=== PATIENT | male | born 1965 | race Caucasian/White ===

== ENCOUNTER 2023-08-19 14:38 | Emergency (ER) | payer OTHER, BC, SELFPAY ==
--- NOTE | 2023-08-19 14:53 | CT_ITS ---
Patient: JOSEPH CABAN Facility:?[facility] RIS Patient ID:?[id number] Site Patient ID:?[id number]. Site :?[id number] Study:?CT-Abdomen/Pelvis WITHOUT-08/19/2023 3:14:22 PM Ordering Physician:CLEMENT Final Report: INDICATION: Left flank pain. COMPARISON: None available. TECHNIQUE: CT of the abdomen and pelvis without intravenous contrast. Please note that all CT scans at this facility use dose modulation, iterative reconstruction, and/or weight-based dosing when appropriate to reduce radiation dose to as low as reasonably achievable. FINDINGS: The study is performed without intravenous contrast. This limits the sensitivity of the exam for the detection bowel pathology, focal lesions of the abdominopelvic viscera and vascular pathology including significant vascular stenosis, occlusion and dissection. ABDOMEN Liver: Normal hepatic attenuation. No suspicious focal hepatic lesion. No intrahepatic biliary ductal dilatation. Gallbladder: Normal gallbladder size. Normal common duct caliber. No pericholecystic inflammatory changes. Pancreas: Normal pancreatic attenuation. No focal lesion. Normal duct caliber. No peripancreatic inflammatory changes. Spleen: Normal splenic attenuation. No suspicious focal lesion. Adrenal Glands: Symmetrical adrenal glands. No focal lesion of significance. Kidneys: Normal bilateral renal attenuation. Parapelvic cysts are noted in the left lower pole renal sinus. No suspicious focal lesion. No obstructing nephrolith or dilatation of the upper urinary tracts. Gastrointestinal tract: Normal caliber, attenuation and wall thickness of the gastrointestinal tract. Scattered diverticulosis without associated inflammatory changes. Normal mesentery. Normal appendix. Vascular: Normal outer wall to outer wall abdominal aortic caliber. Patency and luminal caliber of the abdominopelvic arterial and venous vasculature cannot be assessed on this noncontrast study. Additional findings: No incidental adenopathy. No significant ascites, free fluid or pneumoperitoneum. PELVIS No bladder lesion is identified. Multiple bilateral subcentimeter hyperattenuating non anatomical objects consistent with fiducial marker is are noted at the periphery of the prostate. Please correlate with the patient`s surgical history. No abnormal free fluid. No incidental adenopathy. SKELETON AND BODY WALL No acute or suspicious incidental findings. Apparent prior umbilical hernia mesh repair. Please correlate with the patient`s surgical history. 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 Partially included lower thoracic wall, lungs, pleural spaces and mediastinum are otherwise without significant incidental findings. IMPRESSION: No imaging findings to explain the history of left flank/abdominal pain. Incidental findings described above. The study is performed without intravenous contrast. This limits the sensitivity of the exam for the detection bowel pathology, focal lesions of the abdominopelvic viscera and vascular pathology including significant vascular stenosis, occlusion and dissection. Please note that all CT scans at this facility use dose modulation, iterative reconstruction, and/or weight-based dosing when appropriate to reduce radiation dose to as low as reasonably achievable. Dictated by Aleksandar Molina MD @ 08/19/2023 3:32:04 PM Signed by:?Aleksandar Molina MD @08/19/2023 3:32:04 PM (Electronic Signature)
--- NOTE | 2023-08-19 14:54 | ED_ITS ---
HPI - General Adult General Date Seen: 08/19/23 Chief complaint: Flank Pain Stated complaint: Kidney stones Time Seen by Provider: 08/19/23 14:48 History of Present Illness HPI narrative: This is a very pleasant 58-year-old male presenting to the ER today for left flank pain. His pain began over a week ago last Thursday or Thursday. 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 However he notes that his pain and to be worse when he lays down in bed and worse when he tries to sit and it is actually better when he is up moving around. The pain is located in the left flank. It does not radiate up into his ribs or down into his hip or down his leg. No associated numbness or weakness in the leg. Urination and bowel habits have been normal. No fever. No shortness of breath. No coughing. No known fall or injury. The pain does not radiate around to the front of the abdomen. He went to the ER in [place] the other day to have the pain evaluated. Apparently after seeing the ER doctor they decided clinically that he probably had a kidney stone. They decided not to do workup with CT imaging and rather wait for spontaneous passage.\ He has had ongoing pain all week so came to the ER today desiring workup for kidney stone. He has no previous history of kidney stones. Otherwise healthy. However, he does not go to the doctor and does not currently have primary care. Related Data Previous Rx's ?Medication ?Instructions ?Recorded cyclobenzaprine 10 mg tablet 10 mg PO TID PRN muscle spasm #10 08/19/23 tabs hydrocodone 5 mg-acetaminophen 325 1 tab PO Q4-6H PRN pain #10 tabs 08/19/23 mg tablet Allergies Allergy/AdvReac Type Severity Reaction Status Date / Time No Known Drug Allergies Allergy Verified 08/19/23 14:59 PFSH PFSH Social History Smoking Status: Never smoker Do you use any of these nicotine containing products: None Second hand tobacco smoke exposure: No How often do you have a drink containing alcohol: never AUDIT-C Alcohol total score: 0 Non-prescribed substance use: denies use service: No Exam Narrative: Exam Narrative: Constitutional: Appears well-developed and well-nourished. Alert. Conversant. Non toxic. HENT: Head: Atraumatic. Nose: Nose normal. Mouth/Throat: Oral mucosa is clear and moist. no trismus. Eyes: Conjunctivae normal. EOM normal. Pupils equal, round, and reactive to light. No scleral icterus. Neck: Normal range of motion. Neck supple. No tracheal deviation present. Cardiovascular: Normal rate, regular rhythm. No gallop. No friction rub. No murmur heard. Symmetric radial artery pulses Pulmonary/Chest: Effort normal. No stridor. No respiratory distress. No wheezes. No rales. No rhonchi . No tenderness. Abdominal: Soft. Bowel sounds normal. No distension. No mass. No tenderness. No rebound. No guarding. Musculoskeletal: RUE: Normal range of motion. No tenderness. No deformity LUE: Normal range of motion. No tenderness. No deformity RLE: Normal range of motion. No edema. No tenderness. No deformity LLE: Normal range of motion. No edema. No tenderness. No deformity Left CVA tenderness. No midline thoracic or lumbar spine tenderness. Pelvis stable. Neurological: Alert and oriented to person, place, and time. Normal strength. CN II-VII intact. No sensory deficit. GCS eye subscore is 4. GCS verbal subscore is 5. GCS motor subscore is 6. Normal coordination Sensory: Normal light touch sensation bilaterally on the anteromedial thigh (L3), medial malleolus (L4), dorsal first web space (L5), lateral malleolus (S1). Strength: 5/5 strength hip flexors (L3) on the rig ht and left 5/5 strength in the quadriceps (L4) on t he right and left 5/5 strength in the tibialis anterior 5/5 strength in the EHL (L5) on the righ t and left 5/5 strength in the gastrocnemius (S1) o n the right and left 5/5 strength in the hamstring on the rig ht and left Negative straight leg raise bilaterally. Skin: Skin is warm and dry. No rash noted. No pallor. Normal capillary refill. Psychiatric: Normal mood. Normal affect. Const: Vital Signs, click to edit/add: Vital Signs - 24 hr 08/19/23 14:55 Temperature 97.0 F L Pulse Rate [Pulse Oximeter] 70 Respiratory Rate 18 Blood Pressure [Ri ght Upper Arm] 159/85 H Pulse Oximetry 95 Oxygen Delivery Me thod Room Air Course Vital Signs Vital signs: Initial Vital Signs Temperature 97.0 F L 08/19/23 14:55 Temperature Source Temporal Artery Scan 08/19/23 14:55 Pulse Rate 70 08/19/23 14:55 Respiratory Rate 18 08/19/23 14:55 Blood Pressure 159/85 H 08/19/23 14:55 Blood Pressure Mean 109 H 08/19/23 14:55 Blood Pressure Position Semi-Fowlers 08/19/23 14:55 Pulse Oximetry 95 08/19/23 14:55 Oxygen Delivery Method Room Air 08/19/23 14:55 Vital Signs Temperature 97.0 F L 08/19/23 14:55 Pulse Rate 70 08/19/23 14:55 Respiratory Rate 18 08/19/23 14:55 Blood Pressure 159/85 H 08/19/23 14:55 Pulse Oximetry 95 08/19/23 14:55 Oxygen Delivery Method Room Air 08/19/23 14:55 Temperature 97.0 F L 08/19/23 14:55 Pulse Rate 70 08/19/23 14:55 Respiratory Rate 18 08/19/23 14:55 Blood Pressure 159/85 H 08/19/23 14:55 Pulse Oximetry 95 08/19/23 14:55 Oxygen Delivery Method Room Air 08/19/23 14:55 Medical Decision Making MDM Narrative Medical decision making narrative: Presented to the Emergency Department with left flank pain that began atraumatically over a week ago and has persisted since then. Initial concern was for possible kidney stone or pyelonephritis. However workup including stone protocol CT and urinalysis is negative. Labs showed normal kidney function. He is not having any anterior abdominal pain to suggest gastritis, pancreatitis with radiating pain to the left flank. No sign of abdominal aortic aneurysm on his noncontrast CT. No associated chest pain rib pain to suggest pneumonia, pleural effusion, PE, or thoracic aortic dissection causing his pain. No evidence for shingles. No sign of bruising or abdominal wall cellulitis. No radicular symptoms or other evidence for lumbar radiculopathy or cauda equina. Stone protocol CT shows no obvious bony lesions such as compression fractures or rib fractures. Incidental note is made of pleural thickening. Patient has had previous asbestos exposure. Recommended outpatient follow-up with primary care. At this point no sign of any active malignancy but may need ongoing surveillance. No life threatening cause or need for emergent surgery or hospital admission is detected today. The patient was advised that if symptoms do not completely resolve within another 3-5 days re-evaluation with primary care or return to the ED is indicated. The patient also understands that if they worsen, they should return to the ER right away. I discussed the uncertainty about the diagnosis and answered the patient's questions. return precautions discussed. Prescriptions for [place] and Flexeril provided. Opiate and sedation precautions reviewed. He does not currently have primary care. He will follow up primary care either in [place] or may choose to follow up here in [place]. Recommend follow-up within 1 week or return to the ER if any worsening. Lab Data Labs: Lab Results 08/19/23 08/19/23 Range/Units 14:52 15:30 WBC 7.21 (4.50-11.00) K/uL RBC 5.05 (4.30-5.90) m/uL Hgb 15.2 (13.5-17.5) gm/dL Hct 45.1 (37.0-53.0) % MCV 89 (80-100) fL MCH 30 (26-34) pg MCHC 34 (32-36) gm/dL RDW Coeff of [place] 12.6 (11.5-15.5) % Plt Count 199 (140-440) K/uL Neut % (Auto) 70.3 (42.0-72.0) % Lymph % (Auto) 15.8 L (20-44) % [place] % (Auto) 10.4 (0.0-11.0) % Eos % (Auto) 2.2 (0.0-7.0) % Baso % (Auto) 0.3 (0.0-3.0) % Neut # (Auto) 5.07 (1.7-7.0) K/uL Lymph # (Auto) 1.10 (0.90-2.90) K/uL [place] # (Auto) 0.70 (0.00-0.90) K/UL Eos # (Auto) 0.16 (0.00-0.50) K/uL Baso # (Auto) 0.02 (0.00-0.30) K/uL Abs Immat Gran (auto) 0.07 (0.00-0.30) K/uL Imm/Tot Granulo (auto) 1.0 % Sodium 139 (135-149) mmol/L Potassium 4.0 (3.6-5.1) mmol/L Chloride 108 (96-114) mmol/L Carbon Dioxide 23 (20-32) mmol/L Anion Gap 8 (7-15) mEq/L BUN 15 (7-30) mg/dL Creatinine 0.8 (0.5-1.5) mg/dL Estimated Creat Clear 91.81 Estimated GFR 101 ml/min Glucose 109 (60-115) mg/dL Calcium 9.0 (8.4-10.6) mg/dL Lipase 128 (23-300) U/L Urine Color Yellow (Yellow) Urine Appearance Clear (Clear) Urine pH 6.5 (5.0-8.5) Ur Specific [place] 1.025 (1.000-1.030) Urine Protein Negative (Negative) Urine Glucose (UA) Negative (Negative) Urine Ketones Negative (Negative) Urine Blood Trace-intact A (Negative) Urine Nitrite Negative (Negative) Urine Bilirubin Negative (Negative) Urine Urobilinogen 0.2 (0.2-1.0) Ur Leukocyte Esterase Negative (Negative) Urine RBC 0-2 (0-2) Urine WBC 0-2 (0-5) Urine WBC Clumps Not Reportable Ur Squamous Epith Cells Few (None-Few) Urine Bacteria None (None) Imaging Data CT scan - abdomen: Attestation: I have reviewed the pertinent imaging results. Radiologist's impression: FINDINGS: The study is performed without intravenous contrast. This limits the sensitivity of the exam for the detection bowel pathology, focal lesions of the abdominopelvic viscera and vascular pathology including significant vascular stenosis, occlusion and dissection. ABDOMEN Liver: Normal hepatic attenuation. No suspicious focal hepatic lesion. No intrahepatic biliary ductal dilatation. Gallbladder: Normal gallbladder size. Normal common duct caliber. No pericholecystic inflammatory changes. Pancreas: Normal pancreatic attenuation. No focal lesion. Normal duct caliber. No peripancreatic inflammatory changes. Spleen: Normal splenic attenuation. No suspicious focal lesion. Adrenal Glands: Symmetrical adrenal glands. No focal lesion of significance. Kidneys: Normal bilateral renal attenuation. Parapelvic cysts are noted in the left lower pole renal sinus. No suspicious focal lesion. No obstructing nephrolith or dilatation of the upper urinary tracts. Gastrointestinal tract: Normal caliber, attenuation and wall thickness of the gastrointestinal tract. Scattered diverticulosis without associated inflammatory changes. Normal mesentery. Normal appendix. Vascular: Normal outer wall to outer wall abdominal aortic caliber. Patency and luminal caliber of the abdominopelvic arterial and venous vasculature cannot be assessed on this noncontrast study. Additional findings: No incidental adenopathy. No significant ascites, free fluid or pneumoperitoneum. PELVIS No bladder lesion is identified. Multiple bilateral subcentimeter hyperattenuating non anatomical objects consistent with fiducial marker is are noted at the periphery of the prostate. Please correlate with the patient`s surgical history. No abnormal free fluid. No incidental adenopathy. SKELETON AND BODY WALL No acute or suspicious incidental findings. Apparent prior umbilical hernia mesh repair. Please correlate with the patient`s surgical history. 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 Partially included lower thoracic wall, lungs, pleural spaces and mediastinum are otherwise without significant incidental findings. IMPRESSION: No imaging findings to explain the history of left flank/abdominal pain. Incidental findings described above. Discharge Plan Discharge Clinical Impression: Acute left flank pain Patient Disposition: Home, Self-Care Condition: Stable Instructions: Flank Pain (ED) Additional Instructions: As we discussed, for now your workup looks good. We do not see any sign of kidney stone, kidney infection, or any other serious problem causing your flank pain. At this point we suspect your pain is probably due to injured muscles. You can treat the pain using Tylenol or ibuprofen. If the pain is not controlled with those medications you can use the prescription muscle relaxers or pain killers. Use caution with pain killers and muscle relaxers because they both can cause drowsiness, dizziness, and can be addictive. Your pain should get better within the next 2-3 days. If it is not getting better, please come back to the ER for recheck or follow up with your regular primary care provider. If you would like to establish primary care here in [place] you can call the clinic [phone] to make an ER follow-up appointment. Prescriptions: New hydrocodone-acetaminophen 5-325 mg tablet 1 tab PO Q4-6H PRN (Reason: pain) Qty: 10 0RF cyclobenzaprine 10 mg tablet 10 mg PO TID PRN (Reason: muscle spasm) Qty: 10 0RF Follow Up/Referrals: Provider,Not a Local [Primary Care Provider] - Stand Alone Forms: Rated People Info Instructions
[2023-08-19 14:55] VITALS: BP 159/85; PULSE 70; RESP 18; TEMP 36.1; O2SAT 95; BMI 36.0
[2023-08-19 15:01] LABS: Appearance Urine Clear (Clear); Bilirubin Urine Negative (Negative); Blood Urine Trace-intact (Negative); Color Urine Yellow (Yellow); Glucose Urine Negative (Negative); Ketones Urine Negative (Negative); Leukocyte Esterase Urine Negative (Negative); Nitrite Urine Negative (Negative); Protein Urine Negative (Negative); Specific Gravity Urine 1.025 (1.000-1.030); Urobilinogen Urine 0.2 (0.2-1.0); pH Urine 6.5 (5.0-8.5)
[2023-08-19 15:40] LABS: Basophils Absolute Auto 0.02 K/uL (0.00-0.30); Basophils Percent Auto 0.3 % (0.0-3.0); Eosinophils Absolute Auto 0.16 K/uL (0.00-0.50); Eosinophils Percent Auto 2.2 % (0.0-7.0); Hematocrit 45.1 % (37.0-53.0); Hemoglobin* 15.2 gm/dL (13.5-17.5); Immature Granulocytes Abs Auto 0.07 K/uL (0.00-0.30); Lymphocytes Percent Auto 15.8 % (20-44); Mean Corpuscular HGB Conc 34 gm/dL (32-36); Mean Corpuscular Hemoglobin 30 pg (26-34); Mean Corpuscular Volume 89 fL (80-100); Monocytes Percent Auto 10.4 % (0.0-11.0); Neutrophils Absolute Auto 5.07 K/uL (1.7-7.0); Neutrophils Percent Auto 70.3 % (42.0-72.0); Platelet Count* 199 K/uL (140-440); RDW Coefficient of Variation % 12.6 % (11.5-15.5); Red Blood Count 5.05 m/uL (4.30-5.90); White Blood Count* 7.21 K/uL (4.50-11.00)
[2023-08-19 15:48] LABS: Slide Review Reflex No
[2023-08-19 15:57] LABS: Chloride* 108 mmol/L (96-114); Sodium* 139 mmol/L (135-149)
[2023-08-19 16:00] LABS: Anion Gap 8 mEq/L (7-15); Blood Urea Nitrogen* 15 mg/dL (7-30); Carbon Dioxide* 23 mmol/L (20-32); Creatinine* 0.8 mg/dL (0.5-1.5); Est. Creatinine Clearance* 91.81; Estimated Glomerular Filt Rate 101 ml/min; Glucose* 109 mg/dL (60-115); Lipase* 128 U/L (23-300)
[2023-08-19 16:49] LABS: RBC Urine 0-2 (0-2); WBC Urine 0-2 (0-5)
[2023-08-19 16:50] LABS: Squamous Epithelial Cell Urine Few (None-Few)
== END 2023-08-19 17:11 | disposition home or self-care (01) ==
PROVIDERS: Emergency Provider Emergency Medicine
DX: R10.9 Unspecified abdominal pain (principal)
CPT/HCPCS: 36415; 74176; 80048; 81001; 83690; 85025; 99283; 99284